=== PATIENT | female | born 1970 | race Caucasian/White ===

== ENCOUNTER → 2017-05-01 | Outpatient (CLI) | payer BC ==
--- NOTE | 2017-05-03 10:08 | MAM ---
EXAM DESCRIPTION: 3D Screening BILATERAL CLINICAL HISTORY: 46 years, Female, Screening mammogram COMPARISON: April 25, 2016 TECHNIQUE: CC and MLO digital mammograms with 3-D tomosynthesis. No CAD utilized. FINDINGS: There are scattered fibroglandular densities. There is no dominant mass nor any suspicious microcalcifications. Benign microcalcifications are present. IMPRESSION: BIRAD CATEGORY: 2 BENIGN FOLLOW-UP: Routine mammography screening. Electronically signed by: Gordo Jeffries MD 05/03/2017 10:07 AM CDT
== END ==
LOC: MAMMO 12:00
PROVIDERS: ATTEND Family Medicine
DX: Z12.31 Encounter for screening mammogram for malignant neoplasm of breast (principal)
CPT/HCPCS: 77063; G0202

== ENCOUNTER → 2018-06-19 | Outpatient (CLI) | payer OTHER ==
--- NOTE | 2018-06-20 10:06 | MAM ---
EXAM DESCRIPTION: 3D Screening BILATERAL : Digital Mammography. CLINICAL HISTORY: 47 years Female SCREENING . No complaints. No family history or personal history of breast cancer. Childbirth. Perimenopausal. No HRT. Lifetime risk of developing breast cancer (Tyrer-Cuzick model)(%): 8.2. COMPARISON: Bilateral screening digital breast tomosynthesis 05/01/2017.. TECHNIQUE: Bilateral CC and MLO projection full-field images, Digital tomosynthesis mammographic technique. Bilateral digital 2-D full-field MLO images. CAD not utilized. FINDINGS: The breast parenchymal density pattern is: Scattered areas of fibroglandular density. No skin thickening or nipple retraction. Bilateral axillary lymph nodes. Bilateral solitary microcalcifications.. No new focal, stellate mass or density, focal asymmetry , and no suspicious microcalcifications bilaterally. Stable mammograms compared to prior study. IMPRESSION: Benign exam. BIRAD CATEGORY: 2 BENIGN FINDINGS. RECOMMENDATIONS: FOLLOW UP: Routine digital bilateral screening, one year interval from June 2018. Written communication explaining the IMPRESSION and follow-up, will be mailed to the patient and referring health care provider. According to the [employer], yearly mammograms are recommended starting at age 40 and continuing as long as a woman is in good health. Any breast change noted on a breast self-exam should be reported promptly to the patient's healthcare provider. Breast MRI is recommended for women with an approximately 20-25% or greater lifetime risk of breast cancer, including women with a strong family history of breast or ovarian cancer and women who have been treated for Hodgkin's disease. A negative mammographic report should not delay tissue diagnosis in patients with significant clinical history or physical findings. Extremely dense breast tissue limits the sensitivity of digital mammography. Electronically signed by: Leoncio Artis MD 06/20/2018 10:04 AM CDT
== END ==
LOC: MAMMO 10:58
PROVIDERS: ATTEND Family Medicine
DX: Z12.31 Encounter for screening mammogram for malignant neoplasm of breast (principal)

== ENCOUNTER → 2018-06-26 | Outpatient (CLI) | payer OTHER ==
--- NOTE | 2018-06-26 16:05 | US ---
EXAM DESCRIPTION: Ultrasound right upper quadrant CLINICAL HISTORY: 47 years Female, ELEVATED LFT COMPARISON: None. FINDINGS: Positive color flow in the portal vein toward the liver. Liver is mildly hyperechoic suggesting mild hepatic steatosis. No liver surface irregularity, mass or intrahepatic bile duct dilatation. Liver length of 14.5 cm is normal. Gallbladder appears normal with no stones. Common duct is normal in caliber at 3.5 mm. Normal aorta and inferior vena cava. Single image of the right kidney shows no definite abnormality. IMPRESSION: Sonogram findings suggest mild hepatic steatosis. Otherwise unremarkable examination of the right upper quadrant. Electronically signed by: Juan Carlos Guzman MD 06/26/2018 4:03 PM CDT
== END ==
LOC: US 08:14
PROVIDERS: ATTEND Family Medicine
DX: R94.5 Abnormal results of liver function studies (principal)

== ENCOUNTER → 2019-09-18 | Outpatient (CLI) | payer BC, OTHER ==
--- NOTE | 2019-09-19 16:09 | MAM ---
EXAM DESCRIPTION: 3D Screening BILATERAL : Digital Mammography. CLINICAL HISTORY: 48 years Female ANNUAL SCREENING . No complaints. No personal or family history of breast cancer. Menarche age 11. Childbirth age 22. Postmenopausal age unknown. No HRT.. Lifetime risk of developing breast cancer (Tyrer-Cuzick model)(%): 8.0. COMPARISON: Bilateral screening digital breast tomosynthesis June 2018 and April 2017.. TECHNIQUE: Bilateral CC and MLO projection full-field images, digital tomosynthesis mammographic technique. Bilateral digital 2-D full-field MLO images. CAD not available for tomosynthesis or 2-D images. FINDINGS: The breast parenchymal density pattern is: Heterogeneously dense breast tissue, which may obscure small masses. No skin thickening or nipple retraction. Bilateral axillary lymph nodes. Bilateral solitary microcalcifications. No new focal, stellate mass or density, focal asymmetry , and no suspicious microcalcifications bilaterally. Stable mammograms compared to prior study. IMPRESSION: Benign exam. BIRAD CATEGORY: 2 BENIGN FINDINGS. RECOMMENDATIONS: FOLLOW UP: Routine digital bilateral mammographic screening, one year interval from September 2019. Written communication explaining the IMPRESSION and follow-up, will be mailed to the patient and referring health care provider. According to the [employer], yearly mammograms are recommended starting at age 40 and continuing as long as a woman is in good health. Any breast change noted on a breast self-exam should be reported promptly to the patient's healthcare provider. Breast MRI is recommended for women with an approximately 20-25% or greater lifetime risk of breast cancer, including women with a strong family history of breast or ovarian cancer and women who have been treated for Hodgkin's disease. A negative mammographic report should not delay tissue diagnosis in patients with significant clinical history or physical findings. Extremely dense breast tissue limits the sensitivity of digital mammography. Electronically signed by: Leoncio Artis MD 09/19/2019 4:07 PM [employer]
== END ==
LOC: MAMMO 11:57
PROVIDERS: ATTEND Family Medicine
DX: Z12.31 Encounter for screening mammogram for malignant neoplasm of breast (principal)